=== PATIENT | female | born 2000 | race Caucasian/White ===

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

== ENCOUNTER 2019-03-13 18:50 | Emergency (ER) | payer SELFPAY ==
[~2019-03-13] VITALS: Ht 139.7 cm; Wt 69.2 kg
[2019-03-13 19:03] VITALS: BP 132/85
== END 2019-03-14 | disposition left against medical advice (07) ==
LOC: ER 18:50
DX: Z53.21 Procedure and treatment not carried out due to patient leaving prior to being seen by health care provider (principal); Q78.0 Osteogenesis imperfecta